=== PATIENT | male | born 1975 | race Two or more races ===

== ENCOUNTER 2017-06-05 19:42 | Emergency (ER) | payer SELFPAY ==
[2017-06-05] MEDS: cefTRIAXone IM 250 MG VIAL IM (20:11)
[2017-06-05] MEDS: metroNIDAZOLE 500 MG TABLET PO (20:11)
[2017-06-05] MEDS: AZITHROMYCIN 250 MG TABLET. PO (20:11)
[2017-06-05 20:29] LABS: BILIRUBIN,URINE NEGATIVE (NEG); CLARITY,URINE CLEAR; COLOR,URINE YELLOW; GLUCOSE,URINE NEGATIVE (NEG); NITRITE,URINE NEGATIVE (NEG); PROTEIN,URINE NEGATIVE (NEG-TRACE); UROBILINOGEN,URINE 0.2 mg/dL (0.2 mg/dL)
[2017-06-05 20:31] LABS: BACTERIA,URINE 0 /HPF (0-FEW); RBC,URINE 0 /HPF (0-2); WBC,URINE 0 /HPF (0-4)
== END 2017-06-05 20:42 | disposition home or self-care (01) ==
LOC: ER 20:42
DX: Z11.3 Encounter for screening for infections with a predominantly sexual mode of transmission (principal)
CPT/HCPCS: 81001; 87491; 87591; 96372; 99284; J0696; Q0144